=== PATIENT | male | born 1970 | race Caucasian/White ===

== ENCOUNTER 2016-03-10 16:48 | Inpatient (IN) | payer MEDICAID ==
[~2016-03-10] VITALS: Ht 180.3 cm; Wt 97.1 kg
[2016-03-10] MEDS ORDERED: ALU/MAG/SIM 30 ML UDC PO PRN (16:50)
[2016-03-10] MEDS ORDERED: LORAZEPAM 2 MG TAB PO PRN (16:50)
[2016-03-10] MEDS ORDERED: MAG HYDROX 30 ML UDC PO PRN (16:50)
[2016-03-10] MEDS ORDERED: LORAZEPAM 2 MG/ML VIAL IM PRN (16:50)
[2016-03-10] MEDS ORDERED: HALOPERIDOL 5 MG TAB PO PRN (16:50)
[2016-03-10] MEDS ORDERED: ACETAMINOPHEN 325 MG TAB PO PRN (16:50)
[2016-03-10] MEDS ORDERED: HALOPERIDOL 5 MG/ML VIAL IM PRN (16:50)
[2016-03-10] MEDS ORDERED: DIPHENHYDRAMINE 50 MG/ML VIAL IM PRN (16:50)
[2016-03-10] MEDS ORDERED: DIPHENHYDRAMINE 50 MG CAP PO PRN (16:50)
[2016-03-10] MEDS ORDERED: TRAZODONE 50 MG TAB PO PRN (16:50)
[2016-03-10 17:30] VITALS: BP_SYST 158; RESP 20; TEMP 97.3
[2016-03-10 17:34] VITALS: Ht 180.3 cm; Wt 97.1 kg
[2016-03-10] MEDS: NICOTINE 21 MG/24 HR TRANSDERM SCH (18:00)
[2016-03-10] MEDS: MULTIVITS/MINERALS (THERAGRAN M) TAB PO SCH (18:00)
[2016-03-10 19:00] VITALS: BP_SYST 141; RESP 16; TEMP 97.3
[2016-03-11] MEDS: NICOTINE 21 MG/24 HR TRANSDERM SCH (08:03)
[2016-03-11] MEDS: MULTIVITS/MINERALS (THERAGRAN M) TAB PO SCH (08:03)
[2016-03-11 08:22] VITALS: BP_SYST 137; RESP 18; TEMP 97.7
[2016-03-11 09:44] VITALS: BP_SYST 137; RESP 18; TEMP 97.7
[2016-03-11 19:05] VITALS: BP_SYST 133; RESP 18; TEMP 97.5
[2016-03-12 08:00] VITALS: BP_SYST 131; RESP 18; TEMP 97.7
== END 2016-03-12 09:28 | DRG 885 ==
LOC: ENRESERVDT → ENRESERVTM → PSY 17:23 → ENPENDDIS 17:23
PROVIDERS: ADMIT Psychiatry & Neurology Psychiatry; ATTEND Psychiatry & Neurology Psychiatry
DX: F20.9 Schizophrenia, unspecified (principal); F17.211 Nicotine dependence, cigarettes, in remission
CPT/HCPCS: 80053; 84439; 84443; 85025